=== PATIENT | female | born 1935 | race Caucasian/White ===

== ENCOUNTER → 2017-04-09 | Outpatient (CLI) | payer OTHER ==
[~2017-04-09] MED LIST: ASPIRIN E.C.81 M1 PO; COLCHICINE,COL0.6 MG PO; Effexor XR PO; LIPITOR40 MG PO; PROTONIX40 MG PO; TRICOR48 MG PO; Zestril,Prinivil PO; [UNRECOGNIZED DRUG - OTHER] PO
== END | disposition home or self-care (01) ==
DX: R26.2 Difficulty in walking, not elsewhere classified (principal); M25.562 Pain in left knee; M25.662 Stiffness of left knee, not elsewhere classified; M62.81 Muscle weakness (generalized); M17.12 Unilateral primary osteoarthritis, left knee
CPT/HCPCS: 97161 GP; 97165 GO; 97530 GP; 97537 GO; G8978 GP; G8979 GP; G8980 GP; G8990 GO; G8991 GO; G8992 GO

== ENCOUNTER 2017-05-19 21:06 | Inpatient (IN) | payer OTHER ==
[~2017-05-19] VITALS: Ht 157.5 cm; Wt 91.1 kg
[~2017-05-19 21:06] MED LIST changes: +ALLOPURINOL300 MG PO; +ASPIRIN81 M2 PO; +EFFEXOR75 MG PO; +FISH OIL 1,0001 EAC7 PO; +GABAPENTIN100 MG PO; +IBUPROFEN200 M1 PO; +LOSARTAN POTASS50 MG PO
[2017-05-20 07:27] VITALS: BP 132/66
[2017-05-20 11:46] LABS: HEMATOCRIT 36.3 % (36.0-46.0); HEMOGLOBIN 11.9 G/DL (11.9-15.5); MCH 29.2 PG (29.0-34.0); MCHC 32.8 G/DL (30.0-36.0); PLATELET COUNT 221 K/uL (156-360); RBC DIS.WIDTH-CV 13.8 % (11.8-14.6); RBC DIS.WIDTH-SD 44.4 % (39-53); RED BLOOD COUNT 4.08 M/uL (3.80-5.20); WHITE BLOOD COUNT 7.9 K/uL (4.1-10.2)
[2017-05-20 13:43] VITALS: BP 159/55
[2017-05-20 15:37] VITALS: BP 146/65
[2017-05-20 19:50] VITALS: BP 158/73
[2017-05-21 00:02] VITALS: BP 158/68
[2017-05-21 04:00] VITALS: BP 141/65
[2017-05-21 04:52] LABS: HEMOGLOBIN 12.1 G/DL (11.9-15.5); MCV 88.8 FL (83-99)
[2017-05-21 05:01] LABS: CHLORIDE 105 mEq/L (99-109); POTASSIUM 4.4 mEq/L (3.7-5.4); SODIUM 139 mEq/L (136-147)
[2017-05-21 05:03] LABS: GLUCOSE 109 mg/dL (70-99)
[2017-05-21 05:06] LABS: CREATININE 0.9 mg/dL (0.6-1.3); GFR ESTIMATE (CALCULATED) > 59 mL/min/
[2017-05-21 05:07] LABS: UREA NITROGEN (BUN) 16 mg/dL (9-23)
[2017-05-21 08:11] VITALS: BP 185/74
[2017-05-21 11:40] VITALS: BP 124/60
[2017-05-21 15:29] VITALS: BP 144/67
[2017-05-21] MEDS ORDERED: MORPHINE SULFAT15 MG PO (16:15)
[2017-05-21] MEDS ORDERED: LOVENOX40 MG/0.4 SC (16:15)
[2017-05-21 20:02] VITALS: BP 147/67
[2017-05-22 00:02] VITALS: BP 129/62
[2017-05-22 04:09] VITALS: BP 115/55
[2017-05-22 06:12] LABS: HEMATOCRIT 37.5 % (36.0-46.0); HEMOGLOBIN 11.9 G/DL (11.9-15.5); MCV 89.3 FL (83-99)
[2017-05-22 08:19] VITALS: BP 142/65
[2017-05-22 12:11] VITALS: BP 100/55
[2017-05-22] MEDS ORDERED: MORPHINE SULFAT30 M1 PO (16:55)
[2017-05-22] MEDS ORDERED: CELEBREX200 MG PO (16:58)
[2017-05-22] MEDS ORDERED: SENOKOT S,PE1 TABLET PO (17:00)
[2017-05-22] MEDS ORDERED: CHILDREN'S ASPI81 M1 PO (17:01)
[2017-05-22] MEDS ORDERED: MOTRIN IB200 MG PO (17:03)
== END 2017-05-22 16:00 | DRG 470 ==
LOC: ENRESERV 21:06 → 2SOUTH 05-20 06:47 → 3WEST 05-20 06:47 → 2SOUTH 05-20 12:10 → 3WEST 05-20 13:33 → 2SOUTH 05-20 15:50 → 3WEST 05-22 16:00
PROVIDERS: Orthopaedic Surgery
PROC: 0SRD0J9 Replacement of Left Knee Joint with Synthetic Substitute, Cemented, Open Approach (ICD-10-PCS; principal; 2017-05-20)
DX: M17.12 Unilateral primary osteoarthritis, left knee (principal); E78.5 Hyperlipidemia, unspecified; I10 Essential (primary) hypertension; M10.9 Gout, unspecified; F41.9 Anxiety disorder, unspecified; Z82.49 Family history of ischemic heart disease and other diseases of the circulatory system
CPT/HCPCS: 71045; 73560; 80048; 85014; 85018; 85027; C1713; J0131; J0690; J1100; J1650; J2250; J2405; J2795; J7050

== ENCOUNTER 2017-05-22 11:44 | Inpatient (IN) | payer OTHER ==
[~2017-05-22] VITALS: Ht 157.5 cm; Wt 92.9 kg
[~2017-05-22 11:44] MED LIST changes: +LOVENOX40 MG/0.4 SC; +MORPHINE SULFAT15 MG PO
[2017-05-22 16:31] VITALS: BP 119/57
[2017-05-22] MEDS ORDERED: MORPHINE SULFAT30 M1 PO (16:55)
[2017-05-22] MEDS ORDERED: CELEBREX200 MG PO (16:58)
[2017-05-22] MEDS ORDERED: SENOKOT S,PE1 TABLET PO (17:00)
[2017-05-22] MEDS ORDERED: CHILDREN'S ASPI81 M1 PO (17:01)
[2017-05-22] MEDS ORDERED: MOTRIN IB200 MG PO (17:03)
[2017-05-22 23:51] VITALS: BP 111/63
[2017-05-23 05:16] LABS: HEMATOCRIT 35.6 % (36.0-46.0); HEMOGLOBIN 11.2 G/DL (11.9-15.5); MCH 28.1 PG (29.0-34.0); MCHC 31.5 G/DL (30.0-36.0); MCV 89.4 FL (83-99); PLATELET COUNT 224 K/uL (156-360); RBC DIS.WIDTH-CV 14.1 % (11.8-14.6); RBC DIS.WIDTH-SD 46.4 % (39-53); RED BLOOD COUNT 3.98 M/uL (3.80-5.20); WHITE BLOOD COUNT 8.4 K/uL (4.1-10.2)
[2017-05-23 05:35] VITALS: BP 93/54
[2017-05-23 05:39] LABS: ALBUMIN 3.4 G/DL (3.2-4.8); ALKALINE PHOSPHATASE 72 IU/L (3-129); ALT (GPT) 22 IU/L (3-49); AST (GOT) 31 IU/L (2-34); CHLORIDE 101 MEQ/L (99-109); CREATININE 1.1 MG/DL (0.6-1.3); GFR ESTIMATE (CALCULATED) 51 mL/min/; GLUCOSE 98 mg/dL (70-99); POTASSIUM 4.1 MEQ/L (3.7-5.4); SODIUM 133 MEQ/L (136-147); TOTAL BILIRUBIN 1.2 MG/DL (0.0-1.0); TOTAL PROTEIN 6.3 G/DL (6.4-8.3)
[2017-05-23 05:40] LABS: UREA NITROGEN (BUN) 30 mg/dL (9-23)
[2017-05-23 15:05] VITALS: BP 115/54
[2017-05-24 04:49] VITALS: BP 113/68
[2017-05-24 15:35] VITALS: BP 108/52
[2017-05-25 06:06] VITALS: BP 137/65
[2017-05-25 13:55] VITALS: BP 118/57
[2017-05-25 15:00] VITALS: BP 122/58
[2017-05-26 04:18] VITALS: BP 133/67
[2017-05-26 16:31] VITALS: BP 139/72
[2017-05-27 05:26] VITALS: BP 144/70
[2017-05-27 15:00] VITALS: BP 118/64
[2017-05-28 05:40] VITALS: BP 131/63
[2017-05-28 15:56] VITALS: BP 142/65
[2017-05-29 06:01] VITALS: BP 133/62
[2017-05-29 06:55] LABS: HEMATOCRIT 38.2 % (36.0-46.0); MCH 27.3 PG (29.0-34.0); MCHC 31.4 G/DL (30.0-36.0); RBC DIS.WIDTH-CV 13.8 % (11.8-14.6); RBC DIS.WIDTH-SD 44.2 % (39-53); RED BLOOD COUNT 4.39 M/uL (3.80-5.20); WHITE BLOOD COUNT 7.3 K/uL (4.1-10.2)
[2017-05-29 06:56] LABS: PLATELET COUNT 402 K/uL (156-360)
[2017-05-29 07:19] LABS: ALBUMIN 3.7 G/DL (3.2-4.8); ALKALINE PHOSPHATASE 73 IU/L (3-129); ALT (GPT) 31 IU/L (3-49); AST (GOT) 27 IU/L (2-34); CHLORIDE 103 MEQ/L (99-109); CREATININE 0.9 MG/DL (0.6-1.3); GFR ESTIMATE (CALCULATED) > 59 mL/min/; GLUCOSE 102 mg/dL (70-99); POTASSIUM 4.8 MEQ/L (3.7-5.4); TOTAL PROTEIN 6.3 G/DL (6.4-8.3); UREA NITROGEN (BUN) 19 mg/dL (9-23)
[2017-05-29 07:20] LABS: SODIUM 140 MEQ/L (136-147); TOTAL BILIRUBIN 0.7 MG/DL (0.0-1.0)
[2017-05-29 16:04] VITALS: BP 122/56
[2017-05-29] MEDS ORDERED: SENOKOT S,PE1 TABLET PO (22:10)
[2017-05-29] MEDS ORDERED: TRAMADOL HCL50 MG PO (22:10)
[2017-05-29] MEDS ORDERED: DOCUSATE SODIU100 MG PO (22:10)
[2017-05-29] MEDS ORDERED: CELEBREX200 MG PO (22:10)
[2017-05-30 05:05] VITALS: BP 131/80
== END 2017-05-30 13:50 | DRG 554 ==
LOC: 3WEST 11:44 → ENPENDDIS 05-30 → 3WEST 05-30 13:50
PROVIDERS: Physical Medicine & Rehabilitation Pain Medicine
PROC: F07M7ZZ Manual Therapy Techniques Treatment of Musculoskeletal System - Whole Body (ICD-10-PCS; principal; 2017-05-22)
DX: M17.12 Unilateral primary osteoarthritis, left knee (principal); Z96.652 Presence of left artificial knee joint; G89.18 Other acute postprocedural pain; D62 Acute posthemorrhagic anemia; E83.51 Hypocalcemia; I10 Essential (primary) hypertension; E78.5 Hyperlipidemia, unspecified; F41.9 Anxiety disorder, unspecified; E66.01 Morbid (severe) obesity due to excess calories; M10.9 Gout, unspecified; Z90.49 Acquired absence of other specified parts of digestive tract; Z68.37 Body mass index [BMI] 37.0-37.9, adult; Z82.49 Family history of ischemic heart disease and other diseases of the circulatory system
CPT/HCPCS: 80053; 85027; 97110 GO; 97530 GP; J1650